=== PATIENT | female | born 1975 | race Caucasian/White ===

== ENCOUNTER 2024-10-13 14:38 | Emergency (ER) | payer OTHER, SELFPAY ==
[2024-10-13 14:51] VITALS: BP 127/91
--- NOTE | 2024-10-13 16:12 | ED.GENMED ---
History of Present Illness
General
Chief Complaint: Fall
Source: patient
Time Seen by Provider: 10/13/24 15:03
History of Present Illness
History of Present Illness:
49-year-old female presenting to the emergency department for evaluation after she excellently fell on some ice striking the back of her head on the ground, since that time around 10 AM this morning patient has had 2 episodes of vomiting with last
being about 1 hour prior to arrival to the emergency department. Patient contacted primary care provider and was recommended to come to the ER for further evaluation and CT imaging. Patient otherwise endorses a mild headache but states no current
nausea, visual changes, focal weakness or numbness, extremity related injuries or any other concerns.
Past History
Past History
ED Past Medical History: Psychiatric
ED Past Surgical History: and Other
Social History
Tobacco: Non-smoker
Alcohol: Occasional
Drug: None
Personal:
Living: with family
Employment: Employed
Review of Systems
Review of Systems
All Other Systems: ROS reviewed and negative except as documented in HPI and ROS
Phy Exam
Physical Exam
Physical Exam:
GENERAL: Alert , in no apparent distress
EYE: conjunctiva clear
Head: Normocephalic atraumatic
NECK: Supple, No midline tenderness
ENT: mmm. No Arias sign or raccoon eyes
LUNGS: no acute respiratory distress
NEUROLOGICAL: Alert and oriented
SKIN: Warm and dry, skin intact.
MUSCULOSKELETAL: well perfused.
PSYCH: Normal and appropriate interaction.
Scores
Heart Failure Risk
Heart Failure Risk Score: Not Applicable
Heart Score for Chest Pain Patients
STEMI patient?: Not applicable
Withdrawal Assessment of Alcohol
Withdrawal Assessment Completed?: Not applicable
Course
Orders/Labs/Results
Orders:
Orders
10/13/24 14:57
CT Head W/o Iv Contrast Urgent
Comment:
Reason For Exam: headache, vomiting s/p head injury
Vital Signs
Initial and Last Documented VS:
Initial Vital Signs
Temp Pulse Resp BP Pulse Ox
98.0 F 96 20 127/91 97
10/13/24 14:51 10/13/24 14:51 10/13/24 14:51 10/13/24 14:51 10/13/24 14:51
Last Documented Vital Signs
Temp Pulse Resp BP Pulse Ox
98.0 F 96 20 127/91 97
10/13/24 14:51 10/13/24 14:51 10/13/24 14:51 10/13/24 14:51 10/13/24 14:51
MDM/Problems Addressed
Differential Diagnosis Includes:
concussion, contusion, ICH, calvarial fx
MDM/Problems Addressed:
49-year-old female presenting the ER for evaluation following an accidental slip and fall resulting in head injury. 2 episodes of vomiting since that time. Suspect concussion is most likely diagnosis but given the 2 episodes of vomiting will
obtain CT scan to evaluate for possible intracranial pathology. Patient declining anything for symptoms at this time.
*Radiology
Radiology exam reviewed: radiology read reviewed
*Pulse Oximetry
Patient hypoxic: no
*Critical Care Note
Total Time (30-74mins, 75-104mins- exclusive of procedures): Not Applicable
Patient Management
Escalation/DeEscalation of care consider admission/obs:
Head CT negative for acute pathology. Patient stable for d/c home. Concussion management discussed. Aware of return precautions
ED Attending Note
-
Portions of this chart may have been created with voice recognition software.� Occasional wrong word or��sound alike� substitutions may have occurred due to the inherent limitations of voice recognition software.
Discharge Plan
Departure
Patient Disposition: Home (Routine Discharge)
Date of Disposition: 10/13/24
Time of Disposition: 16:30
Patient with high blood pressure during this ER visit?: No
Discharge Problem:
Head injury
Instructions: Concussion, Adult (DC)
Prescriptions:
New
ondansetron 4 mg tablet,disintegrating
4 mg PO TIDPRN PRN (Reason: nausea/vomiting) Qty: 6 0RF
Referrals:
Maryse Brownlee PA-C [Family Provider] -
Interventions
Interventions:
*Risk Screen - Suicide Last Done: 10/13/24 14:51
*Nursing Disposition Last Done: 10/13/24 16:37
ED-Musculoskeletal Assessment Last Done: 10/13/24 15:09
ED- Neurological Assessment Last Done: 10/13/24 15:09
ED-Skin Assessment Last Done: 10/13/24 15:09
Discharge Date and Time
Discharge Date/Time: 10/13/24 16:37
Print Language: GERMAN
== END 2024-10-13 16:37 | disposition home or self-care (01) ==
LOC: EMR 14:38
PROVIDERS: EMERGENCY PHYSICIAN Emergency Medicine; FAMILY PHYSICIAN Physician Assistant Medical
DX: S09.90XA Unspecified injury of head, initial encounter (principal); W00.9XXA Unspecified fall due to ice and snow, initial encounter; R11.10 Vomiting, unspecified
CPT/HCPCS: 99284; 70450

== ENCOUNTER → 2025-01-28 15:06 | Outpatient (REF) | payer OTHER, SELFPAY | LOC: RAD 15:06 | PROVIDERS: ATTENDING PHYSICIAN Physician Assistant Medical | DX: M54.12 Radiculopathy, cervical region (principal) | CPT/HCPCS: 72052 ==

== ENCOUNTER → 2025-02-26 14:10 | Outpatient (REF) | payer OTHER, SELFPAY | LOC: WDC 14:10 | PROVIDERS: ATTENDING PHYSICIAN Physician Assistant Medical | DX: Z00.00 Encounter for general adult medical examination without abnormal findings (principal); Z12.31 Encounter for screening mammogram for malignant neoplasm of breast | CPT/HCPCS: 77063; 77067 ==

== ENCOUNTER → 2025-04-01 07:27 | Outpatient (REF) | payer OTHER, SELFPAY | LOC: MRI 3T 07:27 | PROVIDERS: ATTENDING PHYSICIAN Physician Assistant Medical | DX: M54.2 Cervicalgia (principal) | CPT/HCPCS: 72141 ==

== ENCOUNTER → 2025-09-07 10:06 | Outpatient (REF) | payer OTHER, SELFPAY | LOC: WDC 10:06 | PROVIDERS: ATTENDING PHYSICIAN Physician Assistant Medical | DX: R92.30 Dense breasts, unspecified (principal) | CPT/HCPCS: 76641 ==